=== PATIENT | female | born 1965 | race Caucasian/White ===

== ENCOUNTER 2017-11-22 06:51 | Day surgery (SDC) | payer OTHER ==
[2017-11-22] MEDS: NS 1,000 ML IV (07:14)
[2017-11-22] MEDS ORDERED: PROPOFOL 200 MG/20 ML VIAL As Ordered ×2 (08:00→08:15)
[2017-11-22] MEDS ORDERED: LIDOCAINE 2% INJ 100 MG/5 ML SYRINGE As Ordered (08:16)
== END 2017-11-22 08:50 | disposition home or self-care (01) ==
LOC: M OPP 06:51
DX: Z12.11 Encounter for screening for malignant neoplasm of colon (principal); D17.5 Benign lipomatous neoplasm of intra-abdominal organs; D12.4 Benign neoplasm of descending colon; K57.30 Diverticulosis of large intestine without perforation or abscess without bleeding; E73.9 Lactose intolerance, unspecified; G47.33 Obstructive sleep apnea (adult) (pediatric); Z79.899 Other long term (current) drug therapy; Z88.0 Allergy status to penicillin; Z88.1 Allergy status to other antibiotic agents
CPT/HCPCS: 45385

== ENCOUNTER → 2024-11-06 | Outpatient (CLI) | payer OTHER ==
[~2024-11-06] MED LIST: ZYRT10CA5 PO
== END ==
LOC: M WHC 10:55
PROVIDERS: ATTEND Student in an Organized Health Care Education/Training Program
DX: C54.1 Malignant neoplasm of endometrium (principal)